=== PATIENT | female | born 1995 | race Caucasian/White ===

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

== ENCOUNTER 2018-03-07 12:42 | Emergency (ER) | payer OTHER ==
--- NOTE | 2018-03-07 13:08 | ED ---
Psychiatric Complaint - HPI Summary HPI Summary: This patient is a 22 year old F [facility] c/o feeling depressed and states it has been increasing for months. She is a student at and states she needs a resource as she is form [place]. She states she has been self tapering off her medications as she is running out. She takes Zoloft, Wellbutrin, and prazosin. She denies increased SI above baseline, she states she would not hurt herself currently. She states she went to see the crisis center at [facility] and they were not open. - History Of Current Complaint Chief Complaint: EDMentalHealth Time Seen by Provider: 03/07/18 13:05 Hx Obtained From: Patient Onset/Duration: Still Present, Worse Since Timing: Constant Severity Initially: Mild Severity Currently: Moderate Character: Depressed Related History: Positive For: Prior Psychiatric Issues Has Suicidal: Denies: Thoughts - not increased, With A Plan Has Homicidal: Denies: Thoughts, With A Plan - Allergies/Home Medications Allergies/Adverse Reactions: Allergies Allergy/AdvReac Type Severity Reaction Status Date / Time No Known Allergies Allergy Verified 03/07/18 12:54 Home Medications: Home Medications Prazosin CAP* [Minipress CAP*] 1 mg PO DAILY 03/07/18 [History Confirmed ] Sertraline* [Zoloft*] 50 mg PO DAILY 03/07/18 [History Confirmed 03/07/18] l-Norgest/E.estradiol-E.estrad [Ashlyna 0.15-0.03-0.01 mg Tab] 1 tab PO DAILY [History Confirmed 03/07/18] PMH/Surg Hx/FS Hx/Imm Hx Endocrine/Hematology History: Denies: Hx Anticoagulant Therapy Cardiovascular History: Denies: Hx Hypertension Respiratory History: Denies: Hx Asthma Psychiatric History: Reports: Hx Depression Denies: Hx of Violent Episodes Against Others Infectious Disease History: No Infectious Disease History: Denies: Traveled Outside the [place] in Last 30 Days - Family History Known Family History: Positive: Hypertension - Social History Alcohol Use: None Substance Use Type: Reports: None Smoking Status (MU): Never Smoked Tobacco Review of Systems Negative: Fever Positive: Depressed All Other Systems Reviewed And Are Negative: Yes Physical Exam - Summary Physical Exam Summary: Appearance: Well appearing, no pain distress, Flat affect. Skin: warm, dry, reflects adequate perfusion Head/face: normal Eyes: EOMI, ERIC ENT: mucous membranes moist Neck: supple, non-tender Respiratory: CTA, breath sounds present Cardiovascular: RRR, pulses symmetrical Abdomen: non-tender, soft Bowel Sounds: present Musculoskeletal: normal, strength/ROM intact Neuro: normal, sensory motor intact, A&Ox3 Triage Information Reviewed: Yes Vital Signs On Initial Exam: Initial Vitals Temp Pulse Resp BP Pulse Ox 98.8 F 100 16 130/85 100 03/07/18 12:50 03/07/18 12:50 03/07/18 12:50 03/07/18 12:50 03/07/18 12:50 Vital Signs Reviewed: Yes Diagnostics - Vital Signs Vital Signs Temp Pulse Resp BP Pulse Ox 03/07/18 12:50 98.8 F 100 16 130/85 100 - Laboratory Result Diagrams: 03/07/18 14:07 03/07/18 14:07 Lab Statement: Any lab studies that have been ordered have been reviewed, and results considered in the medical decision making process. Course/Dx - Course Course Of Treatment: Patient medically cleared after laboratories, etc. She had mental health evaluation following which it was elected that she be discharged home with outpatient follow-up. Assessment/Plan: After a MHE by Dr. Pozo the patient was deemed stable to be discharged home. They will f/u with [facility] services - Differential Dx/Clinical Impression Provider Diagnosis: Depression Discharge - Sign-Out/Discharge Documenting (check all that apply): Patient Departure - Discharge Plan Condition: Stable Disposition: HOME Patient Education Materials: Depression (ED), Suicide Prevention (ED) Referrals: [facility] [Outside] (please follow up with [facility] as soon as possible ) [facility] [Z.BUSINESS, APPLICATION, OTHER] - (Please follow up with your scheduled appointment tomorrow at 11am with Eugenia Mora) - Billing Disposition and Condition Condition: STABLE Disposition: Home - Attestation Statements Document Initiated by Scribe: Yes Documenting Scribe: Richard Hess Provider For Whom Scribe is Documenting (Include Credential): Dieudonne Green MD Scribe Attestation: Richard Zimmerman , scribed for Dieudonne Green MD on 03/07/18 at 1737. Scribe Documentation Reviewed: Yes Provider Attestation: The documentation as recorded by the Richard pepe accurately reflects the service I personally performed and the decisions made by me, Dieudonne Green MD
[2018-03-07 13:45] LABS: Urine Appearance Clear; Urine Blood Negative (Negative); Urine Color Amber; Urine Ketones Negative (Negative); Urine Protein 1+(30 mg/dL) (Negative); Urine Red Blood Cell Trace(0-2/hpf) (Absent); Urine Specific Gravity 1.029 (1.010-1.030); Urine Urobilinogen Negative (Negative); Urine White Blood Cell 1+(6-10/hpf) (Absent)
[2018-03-07 14:38] LABS: ABS Basophils 0.1 10^3/ul (0-0.2); ABS Eosinophils 0.1 10^3/ul (0-0.6); ABS Lymphocytes 2.2 10^3/ul (1.0-4.8); ABS Monocytes 0.5 10^3/ul (0-0.8); ABS Neutrophils 3.8 10^3/ul (1.5-7.7); ABS Nucleated RBC 0 10^3/ul; Eosinophil % 1.8 % (0-6); Hematocrit 40 % (35-47); Hemoglobin 13.5 g/dl (12.0-16.0); Lymphocyte % 33.1 % (25-47); Mean Corpuscular HGB Conc 34 g/dl (31-36); Mean Corpuscular Hemoglobin 29 pg (27-31); Mean Corpuscular Volume 86 fL (80-97); Mean Platelet Volume 8.2 um3 (7.4-10.4); Nucleated Red Blood Cells % 0.1; Platelet Count 361 10^3/ul (150-450); Red Blood Count 4.61 10^6/ul (4.00-5.40); Red Cell Distribution Width 14 % (10.5-15); White Blood Count 6.8 10^3/ul (3.5-10.8)
[2018-03-07 14:59] LABS: EGFR Non-African American 103.3 (>60)
[2018-03-07 18:55] VITALS: BP 105/69
== END 2018-03-07 18:53 | disposition home or self-care (01) ==
LOC: ED 12:42
DX: F32.9 Major depressive disorder, single episode, unspecified (principal)
CPT/HCPCS: 36415; 80053; 80307; 80320; 80329; 81003; 81015; 84443; 84702; 85025; 87086; 99285; G0480

== ENCOUNTER → 2018-09-13 16:52 | Emergency (ER) | payer OTHER ==
[2018-09-13 18:06] VITALS: BP 126/79
== END | disposition home or self-care (01) ==
LOC: ED 16:52
DX: R11.10 Vomiting, unspecified (principal); R10.9 Unspecified abdominal pain
CPT/HCPCS: 99281